=== PATIENT | female | born 1985 | race African-American/Black ===

== ENCOUNTER 2023-02-26 08:05 | Emergency (ER) | payer OTHER, SELFPAY ==
[2023-02-26 08:10] VITALS: BP 105/75; PULSE 86; RESP 18; TEMP 37.1; O2SAT 100; BMI 26.9
[2023-02-26 08:46] LABS: Clarity Urine CLEAR (CLEAR); Color Urine DK. ORANGE (YELLOW); Specific Gravity Urine 1.025 (1.005-1.025)
[2023-02-26 08:47] LABS: HCG Qualitative Urine* NEGATIVE (NEGATIVE)
[2023-02-26 09:00] LABS: Glucose Urine UA COLOR INTERFERENCE mg/dL (NEGATIVE); Protein Urine COLOR INTERFERENCE mg/dL (NEG/TRACE); pH Urine COLOR INTERFERENCE (5.0-9.0)
[2023-02-26 09:01] LABS: Bilirubin Urine COLOR INTERFERENCE (NEGATIVE); Blood Urine COLOR INTERFERENCE (NEGATIVE); Ketones Urine COLOR INTERFERENCE mg/dL (NEGATIVE); Leukocyte Esterase Urine COLOR INTERFERENCE (NEGATIVE); Nitrite Urine COLOR INTERFERENCE (NEGATIVE); Urobilinogen Urine COLOR INTERFERENCE EU/dL (0.2-1.0)
[2023-02-26 09:07] LABS: Bacteria Urine TRACE #/HPF (NONE SEEN); Mucus Urine NONE SEEN (NONE SEEN); RBC Urine 0-2 #/HPF (0-2); Squamous Epithelial Cell Urine FEW #/LPF (NONE/RARE)
--- NOTE | 2023-02-26 09:22 | ED.GENADUL1 ---
HPI - General Adult General Chief complaint: Urogenital-Female Stated complaint: FREQUENT BATHROOM TRIPS/NAUSEA/ORANGE COLOR Time Seen by Provider: 02/26/23 09:05 Source: patient Mode of arrival: walk-in Limitations: no limitations History of Present Illness HPI narrative: Patient is a 37-year-old female who is presenting to the Emergency Room with chief complaint of nausea, vomiting, and urinary symptoms since yesterday. Patient have one episode of nausea and vomiting yesterday. Patient started taking is [id number]. Patient's friend is at bedside. Patient is a [employer]. Patient has no vaginal bleeding, discharge or odor. No abdominal pain, nausea vomiting currently. Patient's had loose stools for the past couple days. Patient has no fever, chills, headache, neck pain, or any other acute complaints. Patient has no PCP or GEOPOLITICS TEACHER. . All systems are negative except as noted/marked. All systems reviewed and otherwise negative. . Nurses note and vital signs reviewed and patient is not hypoxic. General: The patient appears well and in no apparent distress. Patient is resting comfortably on cart. Patient is not toxic, lethargic, or listless Skin: Warm, dry, no pallor noted. There is no rash noted. No petechiae, purpura. Head: Normocephalic, atraumatic Eye: Normal conjunctiva, no drainage, EOMI. PERRL Ears, Nose, Mouth, and Throat: oral mucosa is moist. Nares patent. Mouth without vesicles. Cardiovascular: Regular Rate and Rhythm, no murmur, gallop, rub Respiratory: Patient is in no distress, no accessory muscle use, lungs are clear to auscultation, no wheezing, rales or rhonchi Back: non-tender, no CVA tenderness bilaterally to percussion. No CT LS midline pain GI: soft,obese, no tenderness to palpation, no masses appreciated. No rebound, guarding, or rigidity noted. No flank pain bilateral, No distention. No flank pain. No suprapubic tenderness to palpation. Musculoskeletal: Patient has full range of motion of all of the extremities, no motor, sensory, or focal neurological deficits Neurological: A&O x3, normal speech Psychiatric: Cooperative Related Data Home Medications Medication Instructions Recorded Confirmed No Known Home Medications 02/26/23 02/26/23 Allergies Allergy/AdvReac Type Severity Reaction Status Date / Time No Known Drug Allergies Allergy Verified 02/26/23 08:10 Exam Constitutional Vital Signs, click to edit/add: Last Vital Signs Temp 98.7 F 02/26/23 08:10 Pulse 86 02/26/23 08:10 Resp 18 02/26/23 08:10 BP 105/75 02/26/23 08:10 Pulse Ox 100 02/26/23 08:10 O2 Del Method Room Air 02/26/23 08:10 Course Vital Signs Vital signs: Vital Signs Temperature 98.7 F 02/26/23 08:10 Pulse Rate 86 02/26/23 08:10 Respiratory Rate 18 02/26/23 08:10 Blood Pressure 105/75 02/26/23 08:10 Pulse Oximetry 100 02/26/23 08:10 Oxygen Delivery Method Room Air 02/26/23 08:10 Temperature 98.7 F 02/26/23 08:10 Pulse Rate 86 02/26/23 08:10 Respiratory Rate 18 02/26/23 08:10 Blood Pressure 105/75 02/26/23 08:10 Pulse Oximetry 100 02/26/23 08:10 Oxygen Delivery Method Room Air 02/26/23 08:10 Medical Decision Making MDM Narrative Medical decision making narrative: Patient was not happy with her care. Patient had a urine test on, test, and a urine culture was ordered secondary to trace bacteria and minimal white blood cells. Patient's urine is obscured with Azo that she started taking yesterdday and today. Patient was going to be sent home with a prescription for Zofran, patient is aware urine culture is going to be done. Patient became very upset because not giving her an antibiotic for which she knows her body, nose and she has a urinary tract infection. Patient started using swear words, muliple times saying fucking time me stably, the hospital stupid, worthless, she'll go to another place That knows was going on and I will listen to her and treat her. I tried explained to her again that we were listening to her, I was treating with Zofran, Pyridium, she can use [id number] Tylenol Motrin for burning pain. I educated her on urine culture. Patient was still upset, irrate, and stated that she is just going to leave. I went back to my desk to discharged patient, she got dressed and walked out the door before treatment was Completed, she did not receive her discharge papers as well. Patient left without treatment being completed Lab Data Labs: Lab Results 02/26/23 Range/Units 08:17 Urine Color Dk. orange (YELLOW) Urine Clarity Clear (CLEAR) Urine pH Color interference A (5.0-9.0) Ur Specific Browning 1.025 (1.005-1.025) Urine Protein Color interference A (NEG/TRACE) mg/dL Urine Glucose (UA) Color interference A (NEGATIVE) mg/dL Urine Ketones Color interference A (NEGATIVE) mg/dL Urine Occult Blood Color interference A (NEGATIVE) Urine Nitrite Color interference A (NEGATIVE) Urine Bilirubin Color interference A (NEGATIVE) Urine Urobilinogen Color interference A (0.2-1.0) EU/dL Ur Leukocyte Esterase Color interference A (NEGATIVE) Urine RBC 0-2 (0-2) #/HPF Urine WBC 2-5 A (NONE SEEN) #/HPF Ur Squamous Epith Cells Few A (NONE/RARE) #/LPF Urine Bacteria Trace A (NONE SEEN) #/HPF Urine Mucus None seen (NONE SEEN) Urine HCG, Qual Negative (NEGATIVE) Discharge Plan Discharge Chief Complaint: Urogenital-Female Clinical Impression: Dysuria Patient Disposition: Left Against Medical Advice Condition: Fair Prescriptions / Home Meds: No Action No Known Home Medications Additional Instructions: . Patient left without treatment being completed, left without discharge instructions. Patient was recommended to establish and follow up with a GEOPOLITICS TEACHER. Stand Alone Forms: Portal Instructions Referrals: Physician,Non-Staff, MD [Primary Care Provider] - 1 week
== END 2023-02-26 09:55 | disposition left against medical advice (07) ==
PROVIDERS: Emergency Provider Emergency Medicine
DX: R30.0 Dysuria (principal); Z53.29 Procedure and treatment not carried out because of patient's decision for other reasons
CPT/HCPCS: 81001; 84703; 87086; 99283